=== PATIENT | male | born 1990 | race Caucasian/White ===

== ENCOUNTER 2016-08-20 04:27 | Emergency (ER) | payer MEDICAID ==
[2016-08-20] MEDS ORDERED: MORPHINE 4 MG/ML SYR ONE (05:38)
[2016-08-20] MEDS ORDERED: ONDANSETRON 4 MG VIAL ONE (05:38)
[2016-08-20] MEDS ORDERED: SODIUM CHLORIDE 0.9% 1,000 ML ONE (05:38)
== END 2016-08-20 06:51 | disposition home or self-care (01) ==
LOC: ER 04:27
DX: K63.89 Other specified diseases of intestine (principal)
CPT/HCPCS: 36415; 74176; 80053; 81003; 83690; 85025; 96361; 96374; 96375